=== PATIENT | female | born 1985 | race African-American/Black ===

== ENCOUNTER 2017-10-02 09:43 | Emergency (ER) | payer SELFPAY ==
[~2017-10-02] VITALS: Ht 157.5 cm; Wt 80.0 kg
[2017-10-02 09:45] VITALS: BP 134/74; PULSE 94; RESP 16; TEMP 98.4; O2SAT 99
[2017-10-02] MEDS ORDERED: METOCLOPRAMIDE HCL 10 MG/2 ML VIAL IV PUSH ONE (10:30)
[2017-10-02] MEDS ORDERED: SODIUM CHLOR 0.9% 1000 ML INJ 1,000 ML IV ONE ×2 (10:30→13:30)
[2017-10-02 11:00] LABS: BICARBONATE 19.1 MEQ/L (21.0-32.0); CALCIUM 9.5 MG/DL (8.5-10.1); CREATININE 0.72 MG/DL (0.50-1.00)
[2017-10-02 11:22] LABS: BILIRUBIN, URINE NEG (NEG); BLOOD, URINE NEG (NEG); GLUCOSE,URINE NEG (NEG); KETONE, URINE 150 mg/dL (NEG); MUCUS URINE FEW /lpf (OCC); NITRITE,URINE NEG (NEG); PH, URINE 8.5 (5.0-8.5); SQUAMOUS EPITHELIAL CELL URINE 1 /hpf (0-5); URINE COLOR YELLOW (YELLW/STRAW); URINE LEUKOCYTE ESTERASE NEG (NEG)
[2017-10-02] MEDS ORDERED: GRANISETRON HCL 1 MG/ML VIAL IV PUSH ONE (13:30)
--- NOTE | 2017-10-02 13:31 | PD ---
HPI Chief Complaint: GI Complaint Time Seen by Provider: 10:25 Travel History International Travel<30 days: No Contact w/Intl Traveler<30days: No Traveled to known affect area: No History of Present Illness HPI This is a 32-year-old who is at 12 weeks by dates, presents today with complaints of nausea vomiting. Patient has a history of hyperemesis with her first . She is currently being treated for hyperemesis with this . Patient denies any blood in her vomit. She reports that she has not been able to hold anything down 12-24 hours. She denies any dysuria or decreased urine output. She does report that she is tried to keep crackers down and is successful at times however not all the time. There is no reported fevers or chills. There are no other complaints at the time of my examination. PFSH Past Medical History Diminished Hearing: No Tetanus Vaccination: Unknown Influenza Vaccination: No ?: : 2 Para: 1 Past Surgical History Section: Yes Social History Alcohol Use: No Tobacco Use: Yes Substance Use: Yes (marijuana) Allergies-Medications (Allergen,Severity, Reaction): Coded Allergies: No Known Allergies (Unverified , 10/02/17) Reported Meds & Prescriptions Reported Meds & Active Scripts Active Granisetron (Granisetron HCl) 1 Mg Tab 1 Mg PO BID Review of Systems Except as stated in HPI: all other systems reviewed are Neg General / Constitutional: No: Fever, Chills HENT: No: Headaches, Lightheadedness Cardiovascular: No: Chest Pain or Discomfort, Palpitations Respiratory: No: Cough, Shortness of Breath Gastrointestinal: Positive: Nausea, Vomiting, No: Hematemesis Genitourinary: No: Frequency, Dysuria, Hematuria, Decreased Urinary Output, Discharge, Vaginal Bleeding Musculoskeletal: No: Weakness, Pain Neurologic: No: Weakness, Dizziness, Headache Physical Exam Narrative GENERAL: Well-developed well-nourished female in no acute respiratory distress. SKIN: Focused skin assessment warm/dry. HEAD: Atraumatic. Normocephalic. EYES: Pupils equal and round. No scleral icterus. No injection or drainage. ENT: No nasal bleeding or discharge. Mucous membranes pink and moist. NECK: Trachea midline. Supple. CARDIOVASCULAR: Regular rate and rhythm. No murmur appreciated. RESPIRATORY: No accessory muscle use. Clear to auscultation. Breath sounds equal bilaterally. GASTROINTESTINAL: Abdomen soft, nondistended. There is subjective epigastric pain. There is no rebound or guarding. No hepatosplenomegaly. There is no tenderness over her gallbladder or Calhoun sign. MUSCULOSKELETAL: No obvious deformities. No clubbing. No cyanosis. No edema. NEUROLOGICAL: Awake and alert. No obvious cranial nerve deficits. Motor grossly within normal limits. Normal speech. Data Data Last Documented VS Vital Signs Date Time Temp Pulse Resp B/P (MAP) Pulse Ox O2 Delivery O2 Flow Rate FiO2 10/02/17 10:10 18 10/02/17 09:45 98.4 94 134/74 (94) 99 Orders Orders Basic Metabolic Panel (Bmp) (10/02/17 10:26) Urinalysis - C+S If Indicated (10/02/17 10:26) Metoclopramide Inj (Reglan Inj) (10/02/17 10:30) Sodium Chlor 0.9% 1000 Ml Inj (Ns 1000 M (10/02/17 10:30) Granisetron Inj (Kytril Inj) (10/02/17 13:30) Sodium Chlor 0.9% 1000 Ml Inj (Ns 1000 M (10/02/17 13:30) Labs Laboratory Tests Test 10/02/17 10:25 10/02/17 11:00 Blood Urea Nitrogen 4 MG/DL Creatinine 0.72 MG/DL Random Glucose 115 MG/DL Calcium Level 9.5 MG/DL Sodium Level 136 MEQ/L Potassium Level 3.7 MEQ/L Chloride Level 104 MEQ/L Carbon Dioxide Level 19.1 MEQ/L Anion Gap 13 MEQ/L Estimat Glomerular Filtration Rate 113 ML/MIN Urine Color YELLOW Urine Turbidity CLEAR Urine pH 8.5 Urine Specific [place] 1.032 Urine Protein 100 mg/dL Urine Glucose (UA) NEG mg/dL Urine Ketones 150 mg/dL Urine Occult Blood NEG Urine Nitrite NEG Urine Bilirubin NEG Urine Urobilinogen LESS THAN 2.0 MG/DL Urine Leukocyte Esterase NEG Urine RBC 1 /hpf Urine WBC 1 /hpf Urine Squamous Epithelial Cells 1 /hpf Urine Mucus FEW /lpf Microscopic Urinalysis Comment CULT NOT INDICATED MDM Medical Decision Making Medical Screen Exam Complete: Yes Emergency Medical Condition: Yes Differential Diagnosis Hyperemesis gravidarum versus metabolic derangement versus Narrative Course 32-year-old at 12 weeks by dates, presents here with nausea vomiting. Patient has had nausea vomiting with this . She is also had with her first . Patient's labs showed no evidence of acute abnormalities. Urinalysis shows some ketones in her urine. She has been given 2 L of IV fluid. She been given initially Reglan which helped however she started vomiting again. She was given a dose of Kytril which seemed to work very well. She is able to hold down fluids and solids. She will be discharged with a prescription for Kytril 1 tab twice daily with a total number of 10 dispensed. She will return back to [place] after the wedding that they are attending this weekend. She instructed return here if she develops any worsening symptoms. Diagnosis Primary Impression: Hyperemesis gravidarum Additional Instructions: Spur diet. Drink plenty of fluids. Return as needed. Med/Other Pt SpecificInfo: Prescription(s) given Scripts Granisetron (Granisetron) 1 Mg Tab 1 MG PO BID for Nausea/Vomiting, #10 TAB 0 Refills Prov: David Jefferson MD 10/02/17 Disposition: 01 DISCHARGE HOME Condition: Stable David Jefferson MD Oct 02, 2017 13:31
[2017-10-02] MEDS ORDERED: GRAN1TAB PO (15:30)
== END 2017-10-02 15:47 | disposition home or self-care (01) ==
LOC: NEPC 09:43
DX: O21.0 Mild hyperemesis gravidarum (principal); Z3A.12 12 weeks gestation of pregnancy
CPT/HCPCS: 80048; 81001; 96361; 96374; 96375; 99284; J1626; J2765; J7030